=== PATIENT | female | born 1995 | race Caucasian/White ===

== ENCOUNTER 2018-06-26 14:25 | Inpatient (IN) | payer OTHER ==
[~2018-06-26] VITALS: Ht 157.5 cm; Wt 81.7 kg
[~2018-06-26 14:25] MED LIST: OXYTOCIN 30 UNITS/LR 500 ML BAG IV ONE
[2018-06-26 14:56] VITALS: Ht 157.5 cm; Wt 81.7 kg
[2018-06-26 14:57] VITALS: BP 122/83; PULSE 96; RESP 18
[2018-06-26] MEDS ORDERED: METHYLERGONOVINE 0.2 MG INJ IM PRN ×3 (15:00→21:30)
[2018-06-26] MEDS ORDERED: MISOPROSTOL 200 MCG TAB PR PRN ×3 (15:00→21:30)
[2018-06-26] MEDS ORDERED: CARBOPROST 250 MCG INJ IM PRN ×3 (15:00→21:30)
[2018-06-26] MEDS ORDERED: OXYTOCIN 30 UNITS/LR 500 ML IV SCH ×4 (15:00→21:19)
[2018-06-26] MEDS ORDERED: OXYTOCIN 30 UNITS/LR 500 ML IV PRN ×3 (15:00→21:30)
[2018-06-26] MEDS ORDERED: LIDOCAINE 1% (MPF) 30 ML INJ INJ PRN (15:00)
[2018-06-26] MEDS ORDERED: IBUPROFEN 600 MG TAB PO PRN (15:00)
[2018-06-26] MEDS ORDERED: MISOPROSTOL 50 MCG CAPSULE VAG ONE (15:00)
[2018-06-26] MEDS: LACTATED RINGER'S 1,000 ML IV SCH ×2 (16:02→22:49)
[2018-06-26] MEDS ORDERED: PNV11TAB PO (17:00)
[2018-06-26] MEDS ORDERED: METH5SOL3 PO (17:05)
--- NOTE | 2018-06-26 19:41 | PREOPHP ---
DATE OF ADMISSION: 06/26/2018 HISTORY OF PRESENT ILLNESS: This is a 23-year-old lady, 1, para 0, EDC 06/26/2018 at 40 weeks , admitted to labor and delivery area in early labor. She had care in my [facility] office a few times and the care was uneventful. She started to have mild irregular contractions for the last few hours. PAST PERSONAL HISTORY: No history of TB, asthma. ALLERGIES: NO ALLERGIES. SOCIAL HISTORY: The patient does not smoke. She does not drink. MEDICATIONS: She does not take any drugs except her: 1. Iron. 2. Vitamins. GYNECOLOGIC HISTORY: She had menarche at the age of 15, every 28 days interval, 3 to 4 days duration and moderate in amount. FAMILY HISTORY: Noncontributory. REVIEW OF SYSTEMS: CARDIOVASCULAR: No chest pains. RESPIRATORY: No cough. GASTROINTESTINAL: No diarrhea, no vomiting. GENITOURINARY: No dysuria. PHYSICAL EXAMINATION: GENERAL: Reveals a conscious, coherent lady and in no acute distress. VITAL SIGNS: Her blood pressure 120/80, pulse rate 80 per minute, respirations 16 per minute. BREASTS, HEART AND LUNGS: Within normal limits. ABDOMEN: Soft, fundic height 39 cm. heart tones 140 per minute. PELVIC: On admission revealed the cervix to be 2 to 3 cm dilated, 100% effaced, station -3 in cephalic presentation with the bag of water intact. EXTREMITIES: No pedal edema. ADMITTING DIAGNOSIS: A 40 weeks' intrauterine in early labor. The patient had an ultrasound done and the estimated weight was 8 pounds, 11 ounces. The plans of delivery were explained to the patient to go for vaginal delivery. The risks, benefits and alternatives to vaginal delivery and C- section was explained to her. The risks of shoulder dystocia was explained to her as well and to her . The patient and the refused to continue with Pitocin augmentation. The patient wanted to go for primary for suspected macrosomia. The patient discharged to have . The procedures were explained to both of them and both understood everything totally. The risks, benefits and alternatives were discussed with them as well. Dictated By: CHARLENE POLO/TONYA Conf#: [id number] DID#: [id number] MTDD
[2018-06-26] MEDS ORDERED: ONDANSETRON 4 MG INJ ONE (20:04)
[2018-06-26] MEDS ORDERED: OXYTOCIN 10 UNIT INJ ONE (20:04)
[2018-06-26] MEDS ORDERED: morphine SULFATE/PF (10 MG/10 ML) INJ ONE (20:04)
--- NOTE | 2018-06-26 20:28 | PREAC ---
Date/Time of Note Date/Time of Note DATE: 06/26/18 TIME: 20:25 Anesthesia Eval and Record Evaluation Time Pre-Procedure Interview DATE: 06/26/18 TIME: 20:25 Age 23 Sex female NPO: 8 hrs Preoperative diagnosis IUP Planned procedure Csection Past Medical History Past Medical History: None Surgery & Anesthesia Issues No known issue Meds Anticoagulation: No Beta Stefani within 24 hr: No Reason Beta Stefani not given: Pt. not on B-Stefani Reported Medications Methadone Hcl* (Methadone*) 5 Mg/5 Ml Solution, 90 MG PO DAILY PRN for CONTROL WITHDRAWAL SYMPTOMS, ML 06/26/18 [id number] ( 19) 1 Each Tablet, 1 TAB PO DAILY, TAB 06/26/18 Current Medications Lactated Ringer's 1,000 ml @ 125 mls/hr Q8H IV Last administered on 06/26/18at 16:02; Admin Dose 125 MLS/HR; Start 06/26/18 at 14:49 Lidocaine (Xylocaine 1% (Mpf)) 30 ml ONCE PRN INJ EPISIOTOMY; Start 06/26/18 at 15:00 Oxytocin/Lactated Ringer's 500 ml @ 500 mls/hr ONCE POST IV ; Start 06/26/18 at 15:00 Oxytocin/Lactated Ringer's 500 ml @ 125 mls/hr POST IV ; Start 06/26/18 at 15:00 Ibuprofen (Motrin) 600 mg ONCE PRN PO PAIN LEVEL 1-5; Start 06/26/18 at 15:00 Oxytocin/Lactated Ringer's 500 ml @ 0 mls/hr ONCE PRN IV VAGINAL BLEEDING; Start 06/26/18 at 15:00 Methylergonovine Maleate (Methergine) 0.2 mg ONCE PRN IM VAGINAL BLEEDING; Start 06/26/18 at 15:00 Carboprost Tromethamine (Hemabate) 250 mcg ONCE PRN IM VAGINAL BLEEDING; Start 06/26/18 at 15:00 Misoprostol (Cytotec) 1,000 mcg ONCE PRN IA VAGINAL BLEEDING; Start 06/26/18 at 15:00 Oxytocin/Lactated Ringer's 500 ml @ 0 mls/hr FOR INDUCTION IV Last administered on 06/26/18at 16:27; Admin Dose 2 MLS/HR; Start 06/26/18 at 15:00 Oxytocin/Lactated Ringer's 500 ml @ 0 mls/hr ONCE PRN IV VAGINAL BLEEDING; Start 06/26/18 at 19:00 Methylergonovine Maleate (Methergine) 0.2 mg ONCE PRN IM VAGINAL BLEEDING; Start 06/26/18 at 19:00 Carboprost Tromethamine (Hemabate) 250 mcg ONCE PRN IM VAGINAL BLEEDING; Start 06/26/18 at 19:00 Misoprostol (Cytotec) 1,000 mcg ONCE PRN IA VAGINAL BLEEDING; Start 06/26/18 at 19:00 Cefazolin Sodium/ Dextrose 50 ml @ 100 mls/hr ONCE IVPB ; Start 06/26/18 at 19:30 Meds reviewed: Yes Allergies Coded Allergies: erythromycin base (Verified Allergy, Unknown, RASH, 06/26/18) sulfisoxazole (Verified Allergy, Unknown, RASH, 06/26/18) Allergies Reviewed: Yes Labs/Studies Labs Reviewed: Reviewed by anesthesiologist Result Diagram: 06/26/18 1639 Laboratory Tests 06/26/18 16:39 Blood Bank Test 06/26/18 16:39 Antibody Screen NEGATIVE Blood Type A POSITIVE Rh Immune Globulin Candidate NO test: Positive Studies: ECG Pre-procedure Exam Last vitals Vital Signs Date Temp Pulse Resp B/P (MAP) Pulse Ox O2 O2 Flow FiO2 Time Delivery Rate 06/26/18 98.4 96 18 122/83 Room Air 14:57 (96) Airway: Adequate mouth opening, Adequate thyromental dist Mallampati: Mallampati II Teeth: Normal Lung: Normal Heart: Normal ASA Physical Status ASA physical status: 2 Emergency: None Planned Anesthetic Neuraxial: Spinal Planned Pain Management Sub-arachniod narcotics, Parenteral pain med Pre-operative Attestations Prior to commencing anesthesia and surgery, the patient was re-evaluated, there was verification of: *The patient's identity *The results of appropriate recent lab work and preoperative vital signs *The above evaluation not changing prior to induction *Anesthetic plan, risk benefits, alternative and complications discussed with patient/family; questions answered; patient/family understands, accepts and wishes to proceed. NORY REAL MD Jun 26, 2018 20:28
[2018-06-26] MEDS ORDERED: LACTATED RINGER'S 1,000 ML IV SCH (21:19)
--- NOTE | 2018-06-26 21:19 | OPPN ---
Date/Time of Note Date/Time of Note DATE: 06/26/18 TIME: 21:14 Operative Report Planned Procedure Procedure date Jun 26, 2018 Procedure(s) PRIMARY CSECTION Performed by see signature line Manager Massage Department: TARAN LLANES MD 2nd Manager Massage Department none Pre-procedure diagnosis 40WEEKS IUP IN LABOR SUSPECTED MACROSOMIA DESIRES CSECTION 2 [id number] Anesthesia Type: Bmyrs0g spinal Post-Procedure Post-procedure diagnosis 40WEEKS IUP IN LABOR SUSPECTED MACROSOMIA DESIRES CSECTION Findings Live Baby BOY, Apgars 9and 9, weight 7LBS 12OZ 3515 GRAMS Estimated Blood Loss: 500 - 600 mls Specimen(s) none Grafts/Implant(s) PLACENTA Complication(s) none CHARLENE JAMISON MD Jun 26, 2018 21:18
--- NOTE | 2018-06-26 21:23 | PAC ---
Date/Time of Note Date/Time of Note DATE: 06/26/18 TIME: 21:22 Post-Anesthesia Notes Post-Anesthesia Note Last documented vital signs Vital Signs Date Temp Pulse Resp B/P (MAP) Pulse Ox O2 O2 Flow FiO2 Time Delivery Rate 06/26/18 98.4 96 18 122/83 Room Air 14:57 (96) Activity: WNL Respiratory function: WNL Cardiovascular function: WNL Mental status: Baseline Pain reasonably controlled: Yes Hydration appropriate: Yes Nausea/Vomiting absent: Yes Comments BP:112/56,pulse:78, spo2:100%, T:98,8 NORY REAL MD Jun 26, 2018 21:22
[2018-06-26] MEDS ORDERED: METHYLERGONOVINE 0.2 MG TAB PO PRN (21:30)
[2018-06-26] MEDS ORDERED: LANOLIN HPA 1 PKT TOP PRN (21:30)
[2018-06-26] MEDS ORDERED: ONDANSETRON 4 MG INJ IV PRN (21:30)
[2018-06-26] MEDS ORDERED: DIPHENHYDRAMINE 50 MG INJ IV PRN (21:30)
[2018-06-26] MEDS ORDERED: NALOXONE (0.4 MG/ML) INJ IV PRN (21:30)
[2018-06-26] MEDS: KETOROLAC 30 MG INJ IV PRN (22:28)
[2018-06-26] MEDS: CEFAZOLIN 2 GM/50 ML (PMX) 50 ML IVPB SCH (22:50)
[2018-06-26] MEDS: morphine 4 MG/ML VIAL IV PRN (23:42)
[2018-06-27] VITALS: BP 111/68; PULSE 90; RESP 20
[2018-06-27] MEDS: CEFAZOLIN 2 GM/50 ML (PMX) 50 ML IVPB SCH (01:31)
[2018-06-27] MEDS: morphine 4 MG/ML VIAL IV PRN ×2 (02:27→08:38)
[2018-06-27] MEDS: KETOROLAC 30 MG INJ IV PRN ×3 (04:29→18:22)
[2018-06-27 05:54] VITALS: BP 120/78; PULSE 95; RESP 20
[2018-06-27 08:30] VITALS: BP 106/67; RESP 16
[2018-06-27] MEDS: SENNA/DOCUSATE NA (8.6MG/50MG) TAB PO SCH ×2 (08:37→21:00)
[2018-06-27] MEDS: LACTATED RINGER'S 1,000 ML IV SCH ×3 (10:42→18:57)
[2018-06-27 12:00] VITALS: BP 118/71; PULSE 85; RESP 16
--- NOTE | 2018-06-27 13:56 | PN ---
Date/Time of Note Date/Time of Note DATE: 06/27/18 TIME: 13:55 Assessment/Plan VTE Prophylaxis Risk score (from [facility])>0 risk: 4 SCD applied (from [facility]): Yes SCD contraindicated: low risk/ambulating Pharmacological prophylaxis: NA/contraindicated Pharm contraindication: low risk/ambulating Lines/Catheters IV Catheter Type (from [facility]): Peripheral IV Assessment/Plan Assessment/Plan POSTCSECTION DAY 1 ORDERED ADVANCE DIET TOLERATED CBC ON 3RD POSTOP DAY Result Diagram: 06/27/18 0737 06/27/18 0737 Results 24hrs Laboratory Tests Test 06/26/18 14:55 06/26/18 16:39 06/27/18 06:39 06/27/18 07:37 Urine Opiates Screen Negative Urine Barbiturates Negative Urine Amphetamines Negative Screen Urine Negative Benzodiazepines Screen Urine Cocaine Screen Negative Urine Cannabinoids Negative White Blood Count 9.7 9.7 Red Blood Count 3.62 L 3.38 L Hemoglobin 11.7 L 11.1 L Hematocrit 34.0 L 32.4 L Mean Corpuscular 93.9 95.9 Volume Mean Corpuscular 32.3 32.8 Hemoglobin Mean Corpuscular 34.4 34.3 Hemoglobin Concent Red Cell 12.7 12.6 Distribution Width Platelet Count 189 163 Mean Platelet Volume 12.2 H 12.4 H Immature 0.300 0.200 Granulocytes % Neutrophils % 70.8 81.8 H Lymphocytes % 20.1 11.8 L Monocytes % 7.8 5.8 Eosinophils % 0.8 0.3 Basophils % 0.2 0.1 Nucleated Red Blood 0.0 0.0 Cells % Immature 0.030 0.020 Granulocytes # Neutrophils # 6.8 7.9 H Lymphocytes # 1.9 1.2 Monocytes # 0.8 0.6 Eosinophils # 0.1 0.0 Basophils # 0.0 0.0 Nucleated Red Blood 0.0 0.0 Cells # Prothrombin Time 12.1 Prothrombin Time 0.9 Ratio INR International 0.89 Normalized Ratio Activated 23.0 Partial Thromboplast Time Hepatitis B Surface NEGATIVE Antigen Lab Scanned Report REFERENCE LAB Sodium Level 134 L Potassium Level 4.4 Chloride Level 106 Carbon Dioxide Level 23 Anion Gap 5 Blood Urea Nitrogen 8 Creatinine 0.69 Est Glomerular > 60 Filtrat Rate mL/min Glucose Level 91 Calcium Level 8.6 Subjective 24 Hr Interval Summary Free Text/Dictation POST CSECTION DAY 1 COMPLAIN OF INCISIONAL PAINS GOOD URINE OUTPUT PASSING GAS PER RECTUM Exam/Review of Systems Vital Signs Vitals Vital Signs Date Temp Pulse Resp B/P (MAP) Pulse Ox O2 O2 Flow FiO2 Time Delivery Rate 06/27/18 98.5 16 106/67 97 08:30 (80) 06/27/18 95 Room Air 05:54 Intake and Output 06/26/18 06/26/18 06/27/18 1414:59 22:59 06:59 OutputOutput Total 400 ml 1325 ml BalanceBalance -400 ml -1325 ml Exam VITAL SIGNS STABLE: YES AFEBRILE: YES BREAST NOT ENGORGED, NON-TENDER, NO APPRECIABLE MASS: YES LUNGS CLEAR, NO RALES, WHEEZES, RHONCHI: YES SINUS RHYTHM WITHOUT MURMUR: YES ABDOMEN: NON-TENDER FUNDUS: BELOW UMBILICUS BOWEL SOUNDS: PRESENT UTERUS: FIRM INCISION (CLEAN, DRY, AND INTACT): YES LOCHIA: LIGHT DEEP TENDON REFLEXES: 0 EXTREMITIES: NO CALF TENDERNESS EDEMA SCALE: NONE Medications Medications Current Medications Lactated Ringer's 1,000 ml @ 125 mls/hr Q8H IV Last administered on 06/27/18at 10:42; Admin Dose 125 MLS/HR; Start 06/26/18 at 14:49 Lidocaine (Xylocaine 1% (Mpf)) 30 ml ONCE PRN INJ EPISIOTOMY; Start 06/26/18 at 15:00 Oxytocin/Lactated Ringer's 500 ml @ 500 mls/hr ONCE POST IV ; Start 06/26/18 at 15:00 Oxytocin/Lactated Ringer's 500 ml @ 125 mls/hr POST IV ; Start 06/26/18 at 15:00 Ibuprofen (Motrin) 600 mg ONCE PRN PO PAIN LEVEL 1-5; Start 06/26/18 at 15:00 Oxytocin/Lactated Ringer's 500 ml @ 0 mls/hr ONCE PRN IV VAGINAL BLEEDING; Start 06/26/18 at 15:00 Methylergonovine Maleate (Methergine) 0.2 mg ONCE PRN IM VAGINAL BLEEDING; St art 06/26/18 at 15:00 Carboprost Tromethamine (Hemabate) 250 mcg ONCE PRN IM VAGINAL BLEEDING; Start 06/26/18 at 15:00 Misoprostol (Cytotec) 1,000 mcg ONCE PRN [place] VAGINAL BLEEDING; Start 06/26/18 at 15:00 Oxytocin/Lactated Ringer's 500 ml @ 0 mls/hr FOR INDUCTION IV Last administered on 06/26/18at 16:27; Admin Dose 2 MLS/HR; Start 06/26/18 at 15:00 Oxytocin/Lactated Ringer's 500 ml @ 0 mls/hr ONCE PRN IV VAGINAL BLEEDING; Start 06/26/18 at 19:00 Methylergonovine Maleate (Methergine) 0.2 mg ONCE PRN IM VAGINAL BLEEDING; Start 06/26/18 at 19:00 Carboprost Tromethamine (Hemabate) 250 mcg ONCE PRN IM VAGINAL BLEEDING; Start 06/26/18 at 19:00 Misoprostol (Cytotec) 1,000 mcg ONCE PRN VA VAGINAL BLEEDING; Start 06/26/18 at 19:00 Cefazolin Sodium/ Dextrose 50 ml @ 100 mls/hr ONCE IVPB Last administered on 06/27/18at 01:31; Admin Dose 100 MLS/HR; Start 06/26/18 at 19:30 Naloxone HCl (Narcan) 0.1 mg Q2M PRN IV DECREASED REPIRATORY RATE; Start 06/26/18 at 21:30; Stop 06/27/18 at 19:59 Ketorolac Tromethamine (Toradol) 30 mg Q6H PRN IV PAIN Last administered on 06/27/18at 11:15; Admin Dose 30 MG; Start 06/26/18 at 21:30; Stop 06/27/18 at 19:59 Morphine Sulfate (morphine) 2 mg Q3H PRN IV PAIN LEVEL 1-5 Last administered on 06/27/18at 08:38; Admin Dose 2 MG; Start 06/26/18 at 21:30; Stop 06/27/18 at 19:59 Diphenhydramine HCl (Benadryl) 25 mg Q6H PRN IV ITCHING; Start 06/26/18 at 21:30; Stop 06/27/18 at 19:59 Ondansetron HCl (Zofran Inj) 4 mg Q6H PRN IV NAUSEA AND/OR VOMITING; Start 06/26/18 at 21:30; Stop 06/27/18 at 19:59 Methylergonovine Maleate (Methergine) 0.2 mg Q6H PRN PO VAGINAL BLEEDING; St art 06/26/18 at 21:30 Acetaminophen/ Hydrocodone Bitart ([place] (5/325)) 1 tab Q4H PRN PO PAIN LEVEL 4 -6; Start 06/27/18 at 20:00 Acetaminophen/ Hydrocodone Bitart ([place] (5/325)) 2 tab Q4H PRN PO PAIN LEVEL 7-10; Start 06/27/18 at 20:00 Ibuprofen (Motrin) 800 mg Q8H PRN PO MILD PAIN LEVEL 1-3; Start 06/27/18 at 20:00 Simethicone (Mylicon) 160 mg Q8H PRN PO DISTENSION/GAS/BLOATING; Start 06/26/18 at 21:30 Senna/Docusate Sodium (Senokot-S) 1 tab BID PO Last administered on 06/27/18at 08:37; Admin Dose 1 TAB; Start 06/27/18 at 09:00 Lanolin (Lanolin Hpa) 1 applic BEDSIDE MEDICATION PRN TOP BEDSIDE FOR ECHO TO NIPPLES; Start 06/26/18 at 21:30 Diphtheria/ Tetanus/Acell Pertussis (Adacel) 0.5 ml ONCE ONCE IM* ; Start 06/29/18 at 09:00; Stop 06/29/18 at 09:01 Measles/Mumps/ Rubella Vaccine Live (Mmr Ii Vaccine) 0.5 ml ONCE ONCE SC* ; Start 06/29/18 at 09:00; Stop 06/29/18 at 09:01 Oxytocin/Lactated Ringer's 500 ml @ 0 mls/hr ONCE PRN IV VAGINAL BLEEDING; Start 06/26/18 at 21:30 Methylergonovine Maleate (Methergine) 0.2 mg ONCE PRN IM VAGINAL BLEEDING; Start 06/26/18 at 21:30 Carboprost Tromethamine (Hemabate) 250 mcg ONCE PRN IM VAGINAL BLEEDING; Start 06/26/18 at 21:30 Misoprostol (Cytotec) 1,000 mcg ONCE PRN VA VAGINAL BLEEDING; Start 06/26/18 at 21:30 CHARLENE JAMISON MD Jun 27, 2018 13:56
[2018-06-27] MEDS ORDERED: BISACODYL 10 MG SUPP PR ONE (15:00)
[2018-06-27] MEDS ORDERED: MAGNESIUM HYDROXIDE 30ML CUP PO PRN (15:00)
[2018-06-27] MEDS ORDERED: MAGNESIUM HYDROXIDE 30ML CUP PO ONE (15:00)
[2018-06-27 16:00] VITALS: BP 100/65; RESP 16
[2018-06-27] MEDS: METHADONE 10 MG TAB PO SCH (17:03)
[2018-06-27] MEDS ORDERED: HYDROCODONE/APAP (5/325) TAB PO PRN (20:00)
[2018-06-27 20:15] VITALS: BP 108/58; PULSE 89; PULSE 91; RESP 19
[2018-06-28] MEDS: KETOROLAC 30 MG INJ IV PRN ×2 (00:17→06:13)
[2018-06-28 04:15] VITALS: BP 111/73; PULSE 89; RESP 19
--- NOTE | 2018-06-28 07:54 | OPR ---
DATE OF OPERATION: 06/26/2018 PREOPERATIVE DIAGNOSES: 40 weeks intrauterine in labor, suspected macrosomia. The patient desires . POSTOPERATIVE DIAGNOSES: 40 weeks intrauterine in labor, suspected macrosomia. The patien t desires . OPERATION PERFORMED: Primary low transverse section. ANESTHESIA: Spinal. ANESTHESIOLOGIST: Dr. Patel. OPERATIVE TECHNIQUE: Under spinal anesthesia, the patient was prepped and draped in the usual fashio n for abdominal surgery. After checking for the effect of the anesthesia, Pfannenstiel incision, 10 cm skin incision was performed. The incision was carried from the skin up to the fascia. Upon openi ng the skin up to the fascia, small blood vessels were noted to be oozing and these were all cauteriz ed. Fascia was opened transversely followed by splitting the muscles vertically and the peritoneum v ertically. Upon opening the abdominal cavity, the bladder blade was put in place. A small kassie was performed from the serosa up to the endometrium, and the kassie was carried sideways with the aid of my 2 fingers. My left hand was inserted in the lower segment of the uterus and the bag of water was ru ptured. Clear fluid was noted. Baby's head was delivered. Baby's airways were quickly suctioned wi th amniotic fluid. There was one loop of tight cord around the baby's neck that needs to be released prior to the delivery of the rest of the body of the baby. Baby's cord was clamped after 30 seconds , the baby was handed to the NICU team. The placenta was delivered manually and complete. The uteru s was exteriorized. The uterus was cleansed with wet lap sponge to make sure that no membranes were left behind. After correct sponge count, the uterus was closed in the usual fashion using #1 c hromic for the first layer, continuous locking suture was used followed by #1 chromic for the second layer, imbricating sutures were used. Bleeders were checked, and there was no bleeding noted. After checking for any bleeders in which there were none, both tubes and ovaries were inspected. They wer e healthy looking. The back of the uterus was checked for any hematoma and the broad ligament was ch ecked as well and there were no hematoma noted. The uterus was put back into the pelvic cavity. Onc e again, uterine incision was checked for any bleeders and there was no bleeding noted. After correc t sponge count, needle count and instrument count as confirmed by the hydraulic controls technician and transportation aide, the abdomen was closed in the usual fashion using 0 Vicryl for the peritoneum, 0 Vicryl for the muscles, for the fascia 0 Vicryl continuous stitch was used followed by few [id number] sutures for the ureña bcutaneous tissue, it was closed with 3-0 Vicryl and the skin was closed with 3-0 Vicryl, subcuticula r suture was used. The patient tolerated the procedure well. Estimated blood loss was about 600 mL. Vital signs were stable during and after the procedure. Dictated By: CHARLENE JAMISON MD NS/NTS Conf#: [id number] DID#: [id number] CC: CHARLENE JAMISON MD;*EndCC*
[2018-06-28 08:30] VITALS: BP 107/69; PULSE 78; RESP 18
[2018-06-28] MEDS: SENNA/DOCUSATE NA (8.6MG/50MG) TAB PO SCH ×2 (08:57→20:40)
[2018-06-28] MEDS: METHADONE 10 MG TAB PO SCH (08:58)
[2018-06-28] MEDS: IBUPROFEN 800 MG TAB PO PRN (13:54)
[2018-06-28 16:00] VITALS: BP 108/71; PULSE 82; RESP 18
[2018-06-28] MEDS ORDERED: BISACODYL 10 MG SUPP PR ONE ×2 (17:00)
[2018-06-28] MEDS ORDERED: MAGNESIUM HYDROXIDE 30ML CUP PO ONE (17:00)
--- NOTE | 2018-06-28 17:51 | PN ---
Date/Time of Note Date/Time of Note DATE: 06/28/18 TIME: 17:50 Assessment/Plan VTE Prophylaxis Risk score (from Nsg)>0 risk: 1 SCD applied (from Nsg): No SCD contraindicated: low risk/ambulating Pharmacological prophylaxis: NA/contraindicated Pharm contraindication: low risk/ambulating Lines/Catheters IV Catheter Type (from Nrsg): Peripheral IV Assessment/Plan Assessment/Plan POST CSECTION DAY 2 HOME TOMORROW CBC TOMORROW COUNSELED INSTRUCTED PRESCRIPTION GIVEN FOR PAIN RETURN TO CLINIC IN 2 WEEKS CALL OFFICE IF THERE IS ANY PROBLEM OR CONCERN CONTINUE WITH VITAMINS OD AND FERROUS SULFATE 325MG PO TID DIET ADVISED Result Diagram: 06/27/1837 06/27/1837 Subjective 24 Hr Interval Summary Free Text/Dictation POST CSECTION DAY 2 GOOD BOWEL MOVEMENT GOOD URINE OUTPUT FEELS LESS INCISIONAL PAINS Exam/Review of Systems Vital Signs Vitals Vital Signs Date Temp Pulse Resp B/P (MAP) Pulse Ox O2 O2 Flow FiO2 Time Delivery Rate 06/28/18 98.8 78 18 107/69 Room Air 08:30 (82) 06/27/18 100 16:00 Intake and Output 06/27/18 06/27/18 06/28/18 1414:59 22:59 06:59 IntakeIntake Total 900 ml 900 ml 1080 ml OutputOutput Total 1200 ml 900 ml 700 ml BalanceBalance -300 ml 0 ml 380 ml Exam VITAL SIGNS STABLE: YES AFEBRILE: YES BREAST NOT ENGORGED, NON-TENDER, NO APPRECIABLE MASS: YES LUNGS CLEAR, NO RALES, WHEEZES, RHONCHI: YES SINUS RHYTHM WITHOUT MURMUR: YES ABDOMEN: NON-TENDER FUNDUS: BELOW UMBILICUS BOWEL SOUNDS: PRESENT UTERUS: FIRM INCISION (CLEAN, DRY, AND INTACT): YES LOCHIA: LIGHT DEEP TENDON REFLEXES: 0 EXTREMITIES: NO CALF TENDERNESS EDEMA SCALE: NONE Medications Medications Current Medications Lactated Ringer's 1,000 ml @ 125 mls/hr Q8H IV Last administered on 06/27/18at 18:57; Admin Dose 125 MLS/HR; Start 06/26/18 at 14:49 Lidocaine (Xylocaine 1% (Mpf)) 30 ml ONCE PRN INJ EPISIOTOMY; Start 06/26/18 at 15:00 Oxytocin/Lactated Ringer's 500 ml @ 500 mls/hr ONCE POST IV ; Start 06/26/18 at 15:00 Oxytocin/Lactated Ringer's 500 ml @ 125 mls/hr POST IV ; Start 06/26/18 at 15:00 Oxytocin/Lactated Ringer's 500 ml @ 0 mls/hr FOR INDUCTION IV Last administered on 06/26/18at 16:27; Admin Dose 2 MLS/HR; Start 06/26/18 at 15:00 Cefazolin Sodium/ Dextrose 50 ml @ 100 mls/hr ONCE IVPB Last administered on 06/27/18at 01:31; Admin Dose 100 MLS/HR; Start 06/26/18 at 19:30 Methylergonovine Maleate (Methergine) 0.2 mg Q6H PRN PO VAGINAL BLEEDING; Start 06/26/18 at 21:30 Acetaminophen/ Hydrocodone Bitart ([place] (5/325)) 1 tab Q4H PRN PO PAIN LEVEL 4-6; Start 06/27/18 at 20:00 Acetaminophen/ Hydrocodone Bitart ([place] (5/325)) 2 tab Q4H PRN PO PAIN LEVEL 7-10; Start 06/27/18 at 20:00 Ibuprofen (Motrin) 800 mg Q8H PRN PO MILD PAIN LEVEL 1-3 Last administered on 06/28/18at 13:54; Admin Dose 800 MG; Start 06/27/18 at 20:00 Simethicone (Mylicon) 160 mg Q8H PRN PO DISTENSION/GAS/BLOATING; Start 06/26/18 at 21:30 Senna/Docusate Sodium (Senokot-S) 1 tab BID PO Last administered on 06/28/18at 08:57; Admin Dose 1 TAB; Start 06/27/18 at 09:00 Lanolin (Lanolin Hpa) 1 applic BEDSIDE MEDICATION PRN TOP BEDSIDE FOR ECHO TO NIPPLES; Start 06/26/18 at 21:30 Diphtheria/ Tetanus/Acell Pertussis (Adacel) 0.5 ml ONCE ONCE IM* ; Start 06/29/18 at 09:00; Stop 06/29/18 at 09:01 Measles/Mumps/ Rubella Vaccine Live (Mmr Ii Vaccine) 0.5 ml ONCE ONCE SC* ; Start 06/29/18 at 09:00; Stop 1/12/19 at 09:01 Oxytocin/Lactated Ringer's 500 ml @ 0 mls/hr ONCE PRN IV VAGINAL BLEEDING; Start 06/26/18 at 21:30 Methylergonovine Maleate (Methergine) 0.2 mg ONCE PRN IM VAGINAL BLEEDING; Start 06/26/18 at 21:30 Carboprost Tromethamine (Hemabate) 250 mcg ONCE PRN IM VAGINAL BLEEDING; Start 06/26/18 at 21:30 Misoprostol (Cytotec) 1,000 mcg ONCE PRN [place] VAGINAL BLEEDING; Start 06/26/18 at 21:30 Magnesium Hydroxide (Milk Of Mag) 30 ml DAILY PRN PO Give if no BM after delivery; Start 06/27/18 at 15:00 Methadone HCl (Methadone) 90 mg DAILY PO Last administered on 06/28/18at 08:58; Admin Dose 90 MG; Start 06/27/18 at 16:00 Ketorolac Tromethamine (Toradol) 30 mg Q6H PRN IV PAIN LEVEL 1-3 Last administered on 06/28/18at 06:13; Admin Dose 30 MG; Start 06/27/18 at 20:00; Stop 06/30/18 at 19:59 CHARLENE JAMISON MD Jun 28, 2018 17:51
[2018-06-28 20:40] VITALS: BP 109/68; PULSE 79; RESP 19
[2018-06-29] MEDS: IBUPROFEN 800 MG TAB PO PRN ×2 (00:53→13:17)
[2018-06-29 04:00] VITALS: BP 116/68; PULSE 91; RESP 19
[2018-06-29] MEDS: HYDROCODONE/APAP (5/325) TAB PO PRN ×2 (07:59→17:58)
[2018-06-29 08:00] VITALS: BP 127/70; PULSE 79; PULSE 82; RESP 18
[2018-06-29] MEDS ORDERED: MEASLES,MUMPS,RUBELLA VACCINE INJ SC* ONE (09:00)
[2018-06-29] MEDS ORDERED: DIPHTH/TET/ACEL PERTUSS (ADULT) 0.5 ML VIAL IM* ONE (09:00)
[2018-06-29] MEDS: SENNA/DOCUSATE NA (8.6MG/50MG) TAB PO SCH (10:29)
[2018-06-29] MEDS: METHADONE 10 MG TAB PO SCH (10:29)
[2018-06-29 17:00] VITALS: BP 120/66; PULSE 78; RESP 18
--- NOTE | 2018-07-30 07:30 | DS ---
DATE OF ADMISSION: 06/26/2018 DATE OF DISCHARGE: 06/29/2018 This is a 23-year-old lady, 1, EDC 06/26/2018 at 40 weeks , admitted in early labor. HISTORY OF PRESENT ILLNESS: See dictated history and physical. PHYSICAL EXAMINATION: See dictated history and physical. ADMITTING DIAGNOSIS: 40 weeks intrauterine in labor, progress of labor. The plans of deli very were explained to the patient has to go for vaginal delivery or . The risks of shoulde r dystocia explained to the patient as well. The patient had Pitocin augmentation but after Pitocin augmentation she did not like to continue with it. She wanted to go for for suspected macr osomia and she underwent a primary low transverse section per patient request. She tolerate d the procedure well. She did have good postoperative course. The diet was advanced from liquid to general diet. She had good bowel movement postoperatively. She was discharged home on the third pos toperative day on general diet and activity was restricted. She was counseled. She was instructed. She was told to come back to the clinic in 2 weeks. She was told to continue to take her iron and v itamins at home. She was given prescription for pain. FINAL DIAGNOSIS: 40 weeks intrauterine , suspected macrosomia and patient desires . Dictated By: CHARLENE JAMISON MD NS/NTS Conf#: [id number] DID#: [id number] CC: CHARLENE JAMISON MD;*EndCC*
--- NOTE | 2018-08-04 05:44 | DS ---
DATE OF ADMISSION: 06/26/2018 DATE OF DISCHARGE: 06/29/2018 REASON FOR ADMISSION: This is a 23-year-old lady, 1, EDC 06/26/2018 at 40 weeks , ad mitted in labor. HISTORY OF PRESENT ILLNESS: See dictated history and physical. PHYSICAL EXAMINATION: See dictated history and physical. ADMITTING DIAGNOSIS: A 40 weeks intrauterine in labor. HOSPITAL COURSE: The patient wanted to go for primary for suspected macrosomia. The estim ated weight by ultrasound was 8 pounds 11 ounces and she did not like to go for vaginal deliver y. She underwent a primary low transverse section on 06/26/2018 and she tolerated the proce dure well. She did have good postoperative course. The diet was advanced from liquid to a general d iet. She had good bowel movement postoperatively. She was discharged home on the third postoperativ e day on general diet and activity was restricted. She was counseled. She was instructed. She was given prescription for pain. She was told to come back to the clinic in 2 weeks. She was discharged home in good and stable condition. The hematocrit on discharge was 33.2, hemoglobin 11.7. FINAL DIAGNOSES: A 40 weeks intrauterine in labor and desired and suspected macr osomia. Dictated By: CHARLENE POLO/TONYA Conf#: [id number] DID#: [id number]
== END 2018-06-29 18:05 | disposition home or self-care (01) | DRG 788 ==
LOC: OBT 14:25 → L-D 14:31 → PP1 23:59
PROVIDERS: ADMIT Obstetrics & Gynecology; ATTEND Obstetrics & Gynecology
PROC: 10D00Z1 Extraction of Products of Conception, Low, Open Approach (ICD-10-PCS; principal; 2018-06-26 20:00)
DX: O36.63X0 Maternal care for excessive fetal growth, third trimester, not applicable or unspecified (principal); O69.1XX0 Labor and delivery complicated by cord around neck, with compression, not applicable or unspecified; Z3A.40 40 weeks gestation of pregnancy; Z37.0 Single live birth
CPT/HCPCS: 76815; 76818; 80048; 80307; 85025; 85610; 85730; 86592; 86850; 86900; 86901; 87340; 99464; J0690; J1885; J2270; J2274; J2405; J2590; J7120